=== PATIENT | female | born 1970 ===

== ENCOUNTER 2020-09-16 20:08 | Outpatient (CLI) | payer OTHER ==
[2020-09-17 14:23] LABS: SARS-CoV-2 PCR by NAA Not Detected (NotDetected)
== END 2020-09-16 20:09 | disposition home or self-care (01) ==
LOC: SJX 20:08
PROVIDERS: ATTEND Nurse Practitioner Family
DX: R05 Cough (principal); Z20.822 Contact with and (suspected) exposure to COVID-19
CPT/HCPCS: 87635; U0003; U0005